=== PATIENT | male | born 1970 | race Caucasian/White ===

== ENCOUNTER 2022-06-08 01:10 | Day surgery (SDC) | payer BC, SELFPAY ==
[2022-05-21 14:03] VITALS: BMI 33.2
--- NOTE | 2022-06-07 13:03 | P.PNAN_ITS ---
Anes - Initial Pre Proc Eval Procedure: Operation Date: 06/08/22 08:00 Proposed Procedures p Screening Colonoscopy - Bradley Valera MD Date/Time: 06/07/22 13:03 Surgeon: Bradley Valera MD Pre Op Diagnosis: neoplasm screening Patient Data Age: 51 Gender: M Height: 1.78 m Weight: 105 kg Allergies Allergy/AdvReac Type Severity Reaction Status Date / Time No Known Allergies Allergy Mild Verified 06/08/22 06:48 Home Medications Medication Instructions Recorded Confirmed Type allopurinol 300 mg tablet 300 mg PO DAILY #90 tabs 03/02/22 05/21/22 Rx emvbujmc-goq-qzaai acid 300 1 tablet PO DAILY 04/06/22 05/21/22 History mcg-lycopene 600 mcg-lutein 300 mcg tablet (Centrum Silver Men) sodium sul 1.479 gram-potas ch See Rx Instructions PO PER PKG DIR 04/12/22 05/21/22 Rx 0.188 gram-magnes sul 0.225 gram #24 tabs tablet (Sutab) finasteride 1 mg tablet 1 mg PO DAILY 05/21/22 05/21/22 History rosuvastatin 40 mg tablet 40 mg PO DAILY #90 tabs 05/28/22 Rx Patient hx anesthesia problems: none Family hx anesthesia problems: none Results Review: All pre-operative results and documents have been reviewed as part of the pre- operative evaluation. [facility] Past Medical History Medical History (Updated 06/07/22 @ 13:04 by Jay Bosch DO) Hyperlipidemia Surgical History Surgical History (Updated 04/05/22 @ 07:09 by Chivo Waldrop MD) History of excision of pilonidal cyst (2003) Family History Family History (Updated 04/06/22 @ 08:23 by Jovanny Palumbo MA) Father A-fib Hypertension Heart disease Mother Skin cancer Sibling Breast cancer Grandparent Cerebrovascular accident Grandparent Cerebrovascular accident Social History Social History (Updated 04/06/22 @ 08:24 by Jovanny Palumbo MA) Smoking packs per day: 1 Smoking cigarettes per day: 20.0 Years smoked: 30 Smoking pack-years: 30.00 Smoking status: Current every day smoker Tobacco type: cigarettes Second hand tobacco smoke exposure: No Alcohol intake: current Drinks per week: 1 Alcohol use details: Ocassional Substance use: never Substance use type: does not use Living arrangements: with family Gender identity (if verbalized by the patient): Male Sexual Orientation (if Verbalized by the Patient): Straight or Heterosexual Spiritual care concerns: No Agree to blood products: Yes Anes - Eval Final PreProcedure Day of Procedure 06/07/22 13:03 Patient weight: obese Heart: regular rate and rhythm Lungs: clear to auscultation Airway: Mallampati scale class II Neurological: alert and oriented Last oral intake: >/= 8 hours ASA classification: III Emergent: no Anesthetic plan: proceed Anesthesia type and monitoring: general GIVS and standard monitoring Results Review: All pre-operative results and documents have been reviewed as part of the pre- operative evaluation. Informed Consent: The patient's anesthetic plan and its attendant risks and benefits were discussed with the patient/family/POA. Questions were solicited and answers provided to the satisfaction of the patient/family/POA.
[2022-06-08 06:45] VITALS: BP 144/77; PULSE 78; RESP 18; TEMP 36.6; O2SAT 100; BMI 34.7
--- NOTE | 2022-06-08 07:14 | PM.IMHP ---
H&P: HPI History of Present Illness Date/Time: 06/08/22 07:14 Chief Complaint: Neoplasia screening. Narrative: This is a 51-year-old white male patient presents for screening colonoscopy. Patient's current weight appetite bowel movements are normal. He denies abdominal pain. Patient has had no bleeding. Family history is noncontributory. Patient presents today for screening colonoscopy. Review of Systems Review of Systems: Review of systems noncontributory. PMFSH Past Medical History Medical History (Updated 06/08/22 @ 07:16 by Bradley Valera MD) Hyperlipidemia Surgical History Surgical History (Updated 04/05/22 @ 07:09 by Chivo Waldrop MD) History of excision of pilonidal cyst (2003) Family History Family History (Updated 04/06/22 @ 08:23 by Jovanny Palumbo MA) Father A-fib Hypertension Heart disease Mother Skin cancer Sibling Breast cancer Grandparent Cerebrovascular accident Grandparent Cerebrovascular accident Social History Social History (Updated 04/06/22 @ 08:24 by Jovanny Palumbo MA) Smoking packs per day: 1 Smoking cigarettes per day: 20.0 Years smoked: 30 Smoking pack-years: 30.00 Smoking status: Current every day smoker Tobacco type: cigarettes Second hand tobacco smoke exposure: No Alcohol intake: current Drinks per week: 1 Alcohol use details: Ocassional Substance use: never Substance use type: does not use Living arrangements: with family Gender identity (if verbalized by the patient): Male Sexual Orientation (if Verbalized by the Patient): Straight or Heterosexual Spiritual care concerns: No Agree to blood products: Yes Meds Home Medications and Allergies Home Medications Medication Instructions Recorded Confirmed Type allopurinol 300 mg tablet 300 mg PO DAILY #90 tabs 03/02/22 05/21/22 Rx xqukfssn-fpp-xjfpp acid 300 1 tablet PO DAILY 04/06/22 05/21/22 History mcg-lycopene 600 mcg-lutein 300 mcg tablet (Centrum Silver Men) sodium sul 1.479 gram-potas ch See Rx Instructions PO PER PKG DIR 04/12/22 05/21/22 Rx 0.188 gram-magnes sul 0.225 gram #24 tabs tablet (Sutab) finasteride 1 mg tablet 1 mg PO DAILY 05/21/22 05/21/22 History rosuvastatin 40 mg tablet 40 mg PO DAILY #90 tabs 05/28/22 Rx Allergies Allergy/AdvReac Type Severity Reaction Status Date / Time No Known Allergies Allergy Mild Verified 06/08/22 06:48 Vital Signs Vital Signs - 24 hr 06/08/22 06:45 Temperature 98 F Pulse Rate 78 Respiratory Rate 18 Blood Pressure 144/77 H Pulse Oximetry 100 Oxygen Delivery Room Air Exam Narrative: Physical exam reveals patient to be alert. Vital signs stable. HEENT exam is unremarkable. Patient is anicteric. Lungs are clear to auscultation and percussion. Heart is without murmur or extra sounds. Abdominal exam bowel sounds are present soft nontender with no organomegaly. Digital external rectal exam is normal. Assessment and Plan Assessment and plan (1) Encounter for screening colonoscopy: Code(s): Z12.11 - Encounter for screening for malignant neoplasm of colon Status: Acute Assessment and Plan: Patient presents for screening colonoscopy. Appears to be at average risk for colon polyps. Further recommendations will be given after endoscopy.
[2022-06-08] MEDS: LACTATED RINGERS 1,000 ML 150 ML IV CONT (07:17)
[2022-06-08 08:25] VITALS: BP 124/103; PULSE 87; RESP 23; O2SAT 99
[2022-06-08 08:35] VITALS: BP 125/68; PULSE 78; RESP 23; O2SAT 98
[2022-06-08 08:45] VITALS: BP 125/60; PULSE 69; RESP 19; O2SAT 100
== END 2022-06-08 08:46 | disposition home or self-care (01) ==
PROVIDERS: PCP Family Medicine Adolescent Medicine; Visit Provider Internal Medicine Gastroenterology
PROC: 0DJD8ZZ Inspection of Lower Intestinal Tract, Via Natural or Artificial Opening Endoscopic (ICD-10-PCS; CPT 45378; principal; 2022-06-08 08:00)
DX: Z12.11 Encounter for screening for malignant neoplasm of colon (principal); K63.5 Polyp of colon; K57.30 Diverticulosis of large intestine without perforation or abscess without bleeding; E78.5 Hyperlipidemia, unspecified; Z87.891 Personal history of nicotine dependence; E66.9 Obesity, unspecified; Z68.34 Body mass index [BMI] 34.0-34.9, adult
CPT/HCPCS: 45385; 88305; J2001; J2704; J7120

== ENCOUNTER 2025-08-26 08:34 | Outpatient (CLI) | payer BC, SELFPAY ==
--- NOTE | ~2025-08-26 | XR_ITS ---
EXAMINATION: XR hip RT min 2V, 08/26/2025 8:39 CDT HISTORY: M25.551 - Pain in right hip COMPARISON: No comparisons available. Findings: No acute fracture or malalignment. No significant degenerative changes. Soft tissues unremarkable. Impression: No acute fracture or malalignment. Reviewed, dictated and finalized at location P. Impression: No acute fracture or malalignment.
== END 2025-08-26 08:35 | disposition home or self-care (01) ==
LOC: MICIMG 08:35
PROVIDERS: PCP Nurse Practitioner; Visit Provider Nurse Practitioner
DX: M25.551 Pain in right hip (principal)
CPT/HCPCS: 73502

== ENCOUNTER 2025-10-08 08:12 | Outpatient (CLI) | payer BC, SELFPAY ==
--- NOTE | ~2025-10-08 | CT_ITS ---
EXAMINATION:CT lung screening DATE: 10/08/2025 08:31 INDICATION: Screening TECHNIQUE: Computed tomography (CT) of the chest was performed without intravenous contrast. The dose-length product (DLP) was 250.30 mGy-cm. COMPARISON: None. FINDINGS: Moderately extensive calcified mediastinal and hilar lymph nodes noted. No suspicious lung nodules or masses. Lungs are clear. Heart size and great vessels normal in size. No significant pericardial effusion. Central large airways are patent. 2.5 cm benign right adrenal adenoma in the upper abdomen. No acute process seen in the visualized upper abdomen bony thorax or extrathoracic soft tissues. Diffuse degenerative changes throughout the bones. IMPRESSION: 1. No suspicious lung nodule or mass. 2. Several chronic findings as above including extensive calcified lymph nodes consistent with old granulomatous disease.. 3. Lung RADS 2. Recommend correlation with follow-up low-dose lung cancer screening chest CT in 12 months. Reviewed, dictated and finalized at location A. MEL TENDER IMPRESSION: 1. No suspicious lung nodule or mass. 2. Several chronic findings as above including extensive calcified lymph nodes consistent with old granulomatous disease.. 3. Lung RADS 2. Recommend correlation with follow-up low-dose lung cancer scree khoa chest CT in 12 months.
== END 2025-10-08 08:13 | disposition home or self-care (01) ==
LOC: MICIMG 08:13
PROVIDERS: PCP Nurse Practitioner Family; Visit Provider Nurse Practitioner Family
DX: Z12.2 Encounter for screening for malignant neoplasm of respiratory organs (principal); Z87.891 Personal history of nicotine dependence
CPT/HCPCS: 71271